=== PATIENT | female | born 2000 | race Caucasian/White ===

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

== ENCOUNTER 2025-05-09 09:01 | Observation (INO) | payer BC ==
[~2025-05-09] VITALS: Ht 165.1 cm; Wt 98.7 kg
[2025-05-09] VITALS (8 sets, daily range): BP systolic 119–139; BP diastolic 52–68
[~2025-05-09 09:01] MED LIST changes: +DEXAMETHASONE4 MG PO; +HYDROCODONE-AC118 M1 PO; +ZOFRAN4 MG PO
--- OUTSIDE RECORDS SUMMARY | 2025-05-09 09:07 | XMS ---
PreManage Notification: ROBBY GUERRERO Security Tube Washer Events No recent Security Events currently on file CRITERIA MET - Group Notification CARE PROVIDERS JOHNNY [facility] 05/04/2019-Current PHONE: Unknown JEYSON SAMAYOA Physician Current PHONE: [phone] Jono has no Care Guidelines for this patient. Maylin VISIT COUNT (12 MO.) 1 THAD Alva TOTAL 1 NOTE: Visits indicate total known visits. ED/UCC VISIT TRACKING (12 MO.) 05/09/2025 09:01 [facility] [place] TYPE: Emergency COMPLAINT: - ABDOMINAL PAIN INPATIENT VISIT TRACKING (12 MO.) No inpatient visits to display in this time frame [id number]
[2025-05-09] MEDS ORDERED: WEGOVY0.5 MG/0.5 SUB-Q ×2 (09:14)
[2025-05-09 09:27] LABS: BASOPHILS 0.2 % (0.1-1.2); EOSINOPHILS 0.6 % (0.7-5.8); HEMATOCRIT 40.3 % (34.1-44.9); HEMOGLOBIN 12.6 g/dL (11.2-15.7); LYMPHOCYTES 8.9 % (19.3-51.7); MCH 24.5 PG (25.6-32.2); MCHC 31.3 g/dL (32.2-35.5); MCV 78.4 fL (79.4-94.8); MONOCYTES 5.1 % (4.7-12.5); NEUTROPHILS 84.3 % (34.0-71.1); PLATELET COUNT 266 K/uL (182-369); RBC 5.14 M/uL (3.93-5.22)
[2025-05-09] MEDS ORDERED: ondansetron HCL 4 MG/2 ML VIAL IV ONE ×2 (09:30→09:45)
[2025-05-09 09:44] LABS: ALBUMIN/GLOBULIN RATIO 0.63 (1.1-2.4); ANION GAP 20.6 (7-21); BILIRUBIN, TOTAL 0.8 mg/dL (0.2-1.0); BUN/CREATININE RATIO 7.52 (6.0-28.6); CREATININE, SERUM 0.93 mg/dL (0.55-1.02); POTASSIUM 3.6 mmol/L (3.5-5.1); PROTEIN, TOTAL 7.8 g/dL (6.4-8.2)
[2025-05-09] MEDS ORDERED: SODIUM CHLORIDE 0.9% 1,000 ML IV PRN (09:45)
[2025-05-09] MEDS ORDERED: HYDROmorphone HCL 1 MG/ML SYR IV PRN (09:45)
[2025-05-09] MEDS ORDERED: CEFTRIAXONE SODIUM 2 GM in SODIUM CHLORIDE 0.9% 100 ML IV ONE (09:45)
[2025-05-09 09:49] LABS: LACTIC ACID, BLOOD 0.7 mmol/L (0.4-2.0)
[2025-05-09 09:50] LABS: BILIRUBIN, URINE POSITIVE (negative); BLOOD/HGB, URINE SMALL (Negative); KETONE, URINE >=80 (Negative); LEUK ESTERASE, URINE TRACE (negative); NITRITE, URINE POSITIVE (negative)
[2025-05-09 09:54] LABS: EPITHELIAL CELLS, URINE SQUAMOUS 3+ /lpf (0-1+)
[2025-05-09 09:56] LABS: BACTERIA, URINE 2+ /hpf (negative); CASTS, URINE NONE SEEN \\lpf; COLLECTION TYPE, URINE CLEAN CATCH; CRYSTALS, URINE NONE SEEN (0-1+); REFLEX CULTURE, URINE No (No)
[2025-05-09] MEDS ORDERED: ACETAMINOPHEN 1,000 MG/100 ML VIAL IV ONE (11:15)
[2025-05-09] MEDS ORDERED: AMP/SULBACTAM SOD 3 GM in SODIUM CHLORIDE 0.9% 100 ML IV ONE (11:30)
[2025-05-09] MEDS ORDERED: ACETAMINOPHEN 500 MG TAB PO ONE (11:30)
[2025-05-09] MEDS ORDERED: SENNOSIDES/DOCUSATE 1 EA TAB PO SCH (12:23)
[2025-05-09] MEDS ORDERED: ondansetron HCL 4 MG/2 ML VIAL IV PRN (12:30)
[2025-05-09] MEDS ORDERED: KETOROLAC TROMETHAMINE 15 MG/ML VIAL IV PRN (12:30)
[2025-05-09] MEDS ORDERED: SIMETHICONE 80 MG CHEW PO PRN (12:30)
[2025-05-09] MEDS ORDERED: FAMOTIDINE 20 MG TAB PO PRN (12:30)
[2025-05-09] MEDS ORDERED: bisacodyL 10 MG SUPP PR PRN (12:30)
[2025-05-09] MEDS ORDERED: FAMOTIDINE 20 MG/ 2 ML VIAL IV PRN (12:30)
[2025-05-09] MEDS ORDERED: LACTATED RINGER'S 1,000 ML IV SCH (12:30)
[2025-05-09] MEDS ORDERED: MAGNESIUM HYDROXIDE/AL HYDROX 30 ML CUP PO PRN (12:30)
[2025-05-09 12:57] LABS: N. GONORRRHOEAE BY PCR NOT DETECTED (NOT DETECT)
[2025-05-09] MEDS ORDERED: SIMETHICONE 80 MG CHEW PO SCH (13:00)
--- NOTE | 2025-05-09 13:20 | NUR ---
PT ARRIVES TO MEDICAL FLOOR, ABLE TO INDEPENDENTLY TRANSFER TO BED. PT UP TO VOID INDEPENDENTLY. PT REQUESTS PRN PAIN MEDICATION, GIVEN. PT FAMILY AT THE BEDSIDE. PT TOLERATES PO MEDICATIONS AND FOOD/DRINK W/O DIFFICULTY. PT ABLE TO ANSWER ADMISSION QUESTIONS INDEPENDENTLY. PT GIVEN FAN FOR HEAT IN ROOM. PT STATES NO FURTHER NEEDS AT THIS TIME. CALL LIGHT WITHIN REACH.
[2025-05-09] MEDS ORDERED: AMP/SULBACTAM SOD 3 GM in SODIUM CHLORIDE 0.9% 100 ML IV SCH (14:00)
--- NOTE | 2025-05-09 15:15 | NUR ---
PT ADMITTED TO MED SURG FLOOR, COMPLETED VITALS PT REPORTED PAIN LEVEL AT A 6 - INFORMED PT'S NURSE OF PAIN RATING GOT PT FRESH ICE WATER, CALL LIGHT WITHIN REACH PT REPORTED NOT NEEDING ANYTHING ELSE AT THIS TIME
--- NOTE | 2025-05-09 15:32 | NUR ---
MED REC COMPLETE
--- NOTE | 2025-05-09 15:51 | NUR ---
PT C/O /10 CRAMPING ABD PAIN, PRN PAIN MEDICATION GIVEN PER PT REQUEST. PT MENU GIVEN, PT STATES NO FURTHER NEEDS AT THIS TIME, MOTHER AT THE BEDSIDE. CALL LIGHT WITHIN REACH.
--- NOTE | 2025-05-09 18:47 | NUR ---
PT RATED PAIN A "5", PT HAS TWO PARENTS IN ROOM, PT AWAKE AND ALERT, HAS ICE WATER AND STATED SHE DID NOT NEED ANYTHING ELSE AT THIS TIME. CALL LIGHT WITHIN REACH.
--- NOTE | 2025-05-09 19:46 | NUR ---
REPORT RECEIVED FROM DAY SHIFT RN. PT LYING IN BED ALERT AND ORIENTED. REPORTS NAUSEA AND LOWER ABD PAIN 08/04. PRN FOR PAIN AND N/V ADMIN PER EMAR. NO FURTHER NEEDS. WHITE BOARD UPDATED. CALL LIGHT IN REACH.
--- NOTE | 2025-05-09 20:34 | NUR ---
EVENING ASSESSMENT COMPLETE. SCHEDULED MEDS ADMIN PER EMAR. PT REPORTS LOWER ABD PAIN /. PRN FOR PAIN ADMIN PER EMAR. BOWEL TONES ACTIVE. ABD SOFT. PT DENIES NAUSEA. VS AND I&O OBTAINED. MOM TO STAY THE NIGHT, LINENS PROVIDED. PT DENIES QUESTIONS OR CONCERNS. CALL LIGHT IN REACH.
--- NOTE | 2025-05-09 22:02 | NUR ---
PT'S MOM TO RN STATION. REQUESTS WARM BLANKET, AND STATES THAT PT IS PAINFUL. PT RATING PAIN 9/10 TO LOWER ABD. PRN ADMINISTERED, SEE EMAR. PT'S MOM STATES THAT PT IS FEELING COLD, AND THAT PT'S NECK FEELS WARM. TEMPERATURE OBTAINED, 99.0. SOCKS PROVIDED PER PT'S REQUEST, PT'S MOM ASSISTED HER TO PUT THEM ON. PT AND MOM DENY FURTHER NEEDS AT THIS TIME. CALL LIGHT IN REACH.
--- NOTE | 2025-05-09 23:37 | NUR ---
IV PUMP ALARMING. ISSUE RESOLVED PT UP TO BR TO VOID 200 ML CONCENTRATED URINE. PT REPORTS INTERMITTENT SHARP/STABBING PAIN WITH URINATION. BACK TO BED. PRN FOR PAIN ADMIN PER EMAR. PT REPORTS CONCERNS OF URINARY RETENTION. BLADDER SCANNED FOR 5ML. WARM COMPRESS PROVIDED FOR LOWER ABD PAIN. MOM AT BEDSIDE. NO FURTHER NEEDS.
[2025-05-10] VITALS (8 sets, daily range): BP systolic 114–131; BP diastolic 53–63
--- NOTE | 2025-05-10 02:05 | NUR ---
PT RESTING WITH EYES CLOSED. AWAKENS EASILY. VS AND I&O OBTAINED. TEMP AND HR ELEVATED. MD NOTIFIED. NEW TELEPHONE ORDERS RECEIVED VERIFIED WITH READBACK METHOD.
[2025-05-10] MEDS ORDERED: ACETAMINOPHEN 500 MG TAB PO PRN (02:15)
--- NOTE | 2025-05-10 02:50 | NUR ---
IN FOR TYLENOL ADMIN. PT UP TO BR WITH MINIMAL SBA TO VOID. PT REPORTS INCREASED PAIN WITH URINATION. BACK TO BED. PRN FOR PAIN ADMIN. WARM COMPRESS PROVIDED. NO FURTHER NEEDS. MOM AT BEDSIDE. CALL LIGHT IN REACH.
[2025-05-10 05:21] LABS: BASOPHILS 0.2 % (0.1-1.2); EOSINOPHILS 2.2 % (0.7-5.8); HEMATOCRIT 29.8 % (34.1-44.9); HEMOGLOBIN 9.2 g/dL (11.2-15.7); MCH 24.5 PG (25.6-32.2); MCHC 30.9 g/dL (32.2-35.5); MCV 79.3 fL (79.4-94.8); NEUTROPHILS 76.7 % (34.0-71.1); PLATELET COUNT 176 K/uL (182-369); RBC 3.76 M/uL (3.93-5.22)
--- NOTE | 2025-05-10 06:13 | NUR ---
PT RESTING WITH EYES CLOSED. AWAKENS EASILY. VS AND I&O OBTAINED. PT REPORTS LOWER ABD PAIN /. PRN FOR PAIN ADMIN PER EMAR. NEW BAG IVF INFUSING WNL. NO C/O NAUSEA AT THIS TIME. DENIES FURTHER NEEDS. CALL LIGHT IN REACH.
--- NOTE | 2025-05-10 07:32 | HP ---
[facility] [address] [place], [place] [address] Signed ADMISSION DATE: 05/09/2025 CHIEF COMPLAINT: Pelvic cramping. HISTORY OF PRESENT ILLNESS: The patient is a 24-year-old G1, who is approximately nine days status post suction D and C at approximately 13 weeks gestation. This was performed at [facility] in [place], [place]. The patient reports that the surgery went well and she went home and had minimal symptoms for approximately six days afterwards. Starting about four days ago, she began to develop some pelvic cramping in the midline. She had some slight spotting with this, but mostly just cramping. That night, she also developed nausea and vomiting and was unable to keep anything down. She did try some luuh-soi-gusdmrc analgesics, but they were only minimally helpful. Her nausea and vomiting and pelvic pain and cramping got worse and after four days of this, the symptoms became too much for her to handle, so she decided to present to the emergency room. In the ED, she was evaluated by the ED physician and found to be slightly tachycardic. On physical exam, she was found to have moderate lower abdominal tenderness. On pelvic exam, she was found to be quite tender as well. Pelvic ultrasound was performed showing probable bilateral hydrosalpinx, possibly pyosalpinx. Labs, she was found to have a white blood cell count of 20.8 in the ED. 84% neutrophils. Her urine also showed nitrites and white blood cells. REVIEW OF SYMPTOMS: The patient admits to some subjective fevers. Also dysuria, but denies frequency or urgency. Otherwise, 8-point review of systems negative. PAST MEDICAL HISTORY: Denies. PAST SURGICAL HISTORY: 1. The patient had a tonsillectomy in approximately 2018. 2. She also had a left toe pinning as a child. 3. She had a suction D and C in April of 2025. GREY TENDER HISTORY: The patient reports monthly menses lasting seven days. Denies control, denies Electronically Signed By: KOBI GUSTAFSON MD 05/10/25 0732 PATIENT NAME: ROBBY GUERRERO HISTORY AND PHYSICAL DATE OF : 4 REPORT #: [id number] PHYSICIAN: KOBI GUSTAFSON MD PCP: ANAIS CHACKO MD REPORT IS CONFIDENTIAL AND NOT TO BE RELEASED WITHOUT AUTHORIZATION [facility] [address] [place] [id number] Signed sexually transmitted infection, denies history of abnormal Pap. OB HISTORY: The patient is a G1 with a most recent elective AB nine days ago. MEDICATIONS: The patient had begun semaglutide injections, but has only received one dose approximately one week ago. ALLERGIES: NKDA. SOCIAL HISTORY: The patient occasionally smokes cigarettes. She occasionally drinks alcohol, but denies any problems with alcohol in the past. She denies drug use. FAMILY HISTORY: Type 1 diabetes mellitus, hypertension. PHYSICAL EXAMINATION: VITAL SIGNS: Temperature is 38.3. Pulse ranges from 113-129. Respiratory rate ranges 21-30. Blood pressure range 114 to 150/68 to 90. The patient is saturating 96% on room air. GENERAL: The patient appears mildly ill, but is alert and oriented x3. HEENT: Mucous membranes are slightly dry. Sclerae anicteric. NECK: Supple. No thyromegaly. LUNGS: Clear to auscultation bilaterally. BACK: No CVA tenderness. HEART: Regular rate and rhythm, although slightly tachy. No murmurs. ABDOMEN: Normoactive bowel sounds. Abdomen is soft. Moderately tender in the lower abdomen. No rebound. No mass appreciated, no hepatosplenomegaly. PELVIC: Deferred as it will not international exchange coordinator. EXTREMITIES: Trace bilateral lower extremity edema. Lower extremities are nontender bilaterally. LABORATORY DATA: White blood cell count of 20.8, hemoglobin of 12.6, platelets of 266. Urine shows nitrite positive, WBC positive. Creatinine is 0.93, lactate is 0.7. IMAGING: Electronically Signed By: KOBI GUSTAFSON MD 05/10/25 0732 PATIENT NAME: ROBBY GUERRERO HISTORY AND PHYSICAL DATE OF : [birth year] REPORT #: [id number] PHYSICIAN: KOBI GUSTAFSON MD PCP: ANAIS CHACKO MD REPORT IS CONFIDENTIAL AND NOT TO BE RELEASED WITHOUT AUTHORIZATION [address] [address] Signed Pelvic ultrasound, normal endometrium and myometrium. Endometrial thickness of 13 mm. Mildly dilated fallopian tubes bilaterally. Right ovary 34 x 20 x 37 mm. Left ovary 43 x 24 x 38 mm. Small amount of free fluid, no adnexal mass. ASSESSMENT: Postsurgical endomyometritis, status post 13 week elective termination via suction D and C. The patient is slightly tachycardic and needs fluid resuscitation. Additionally, she is unable to keep p.o. down and as such, needs parenteral antibiotics. PLAN: We will admit for OBS. We will begin intravenous Unasyn as standard protocol for endomyometritis. We will give antiemetics and analgesics on a p.r.n. basis. Kobi Gustafson MD BB/MODL /[id number] Copies: ~ Electronically Signed By: KOBI GUSTAFSON MD 05/10/25 0732 PATIENT NAME: ROBBY GUERRERO HISTORY AND PHYSICAL DATE OF : [birth year] REPORT #: [id number] PHYSICIAN: KOBI GUSTAFSON MD PCP: ANAIS CHACKO MD REPORT IS CONFIDENTIAL AND NOT TO BE RELEASED WITHOUT AUTHORIZATION
--- NOTE | 2025-05-10 07:41 | NUR ---
DOCTOR IN TO SEE PATIENT. PATIENT MAY BE SALINE LOCKED TODAY.
[2025-05-10] MEDS ORDERED: HYDROCODONE/ACETA 5/325 TAB PO PRN (08:00)
[2025-05-10] MEDS ORDERED: IBUPROFEN 600 MG TAB PO SCH (08:00)
--- NOTE | 2025-05-10 08:25 | NUR ---
REMOVED IVF ORDERED. AB RUNNING. MOM IN ROOM. PT AMB TO RESTROOM ON OWN. STATES IT TAKES A BIT TO INITIATE STREAM. FEELS SLIGHTLY BLOATED. RATES PAIN 6\10.
--- NOTE | 2025-05-10 09:53 | NUR ---
UR CLINICAL REVIEW: [facility] [place] MEETS OBS FOR PID WITH NEED FOR IV ABX/PAIN MANAGEMENT [facility] PPO OBS 05/09/25 @0902 ORDER MATCHES [facility] FAXED TO [facility] FOR REVIEW PER REQUEST DISCHARGE TO HOME WHEN STABLE. ANTICIPATE DC 05/11/25
--- NOTE | 2025-05-10 09:59 | NUR ---
PT CALLED FOR PAIN MEDS, RATES 7.
--- NOTE | 2025-05-10 10:49 | NUR ---
PERSONAL HEALTH INFORMATION REVIEWED. PATIENT LIVES IN A DUPLEX WITH SISTER IN LAW AND NIECE. PATIENT DOES NOT HAVE ANY STEPS. DOES NOT USE DME. DRIVES AT BASELINE. MOTHER TO PICK HER UP WHEN MEDICALLY CLEARED. IS NOT HAPPY WITH HER PCP BUT LIKE [facility]. CALLED THE CLINIC TO SEE IF SHE COULD GET SET UP WITH SOMEONE ELSE. CLINIC TO CALL PATIENT BACK ABOUT SCHEDULING AND FOLLOW UP APPOINTMENT. NO FUTHER CM NEEDS AT THIS TIME.
--- NOTE | 2025-05-10 11:03 | NUR ---
PT WAS SLEEPING. SPOKE TO PT'S MOTHER WHO IS IN ROOM. LIGHTS TURNED DOWN IN ROOM, CALL LIGHT WITHIN REACH OF PT.
--- NOTE | 2025-05-10 11:44 | NUR ---
PATIENT RESTING IN BED. MOTHER IN ROOM STATES PATIENT REPORTED IMPROVEMENT IN PAIN STATUS AFTER MEDICATION. GAYATRI CASTAÑEDA, SN
--- NOTE | 2025-05-10 12:22 | NUR ---
PT WOKE UP FROM SLEEPING, THIS RETENTION REPRESENTATIVE HELPED HER WITH HER LUNCH TRAY, GOT HER FRESH ICE WATER AND A STRAW SHE REQUESTED. CALL LIGHT WITHIN REACH, PT REPORTED NOT NEEDING ANYTHING ELSE AT THIS TIME.
--- NOTE | 2025-05-10 13:51 | NUR ---
ADMINISTERED SCHEDULED MEDS. MOTHER IN ROOM. PT RATES PAIN 5\10. STATES NORCO WORKED MUCH BETTER THAN THE DILAUDID. GETTING SOME REST.
--- NOTE | 2025-05-10 14:41 | NUR ---
PT WAS LAYING IN BED, STARTED COUGHING AND THEN BECAME NAUSEOUS. PT WAS DRY HEAVING SEVERAL TIMES, CALLED FOR THE RN, THE CHARGE NURSE CAME IN AND GAVE ZOFRAN. ANTIBIOTIC WAS COMPLETED, SO THE PT'S NURSE CAME IN AND TOOK THE IV OUT, BECAUSE SHE SAID SHE NEEDED A NEW IV. THE PT'S ROOM WAS HOT, THIS TOOL RADIAL DRILL PRESS SET UP OPERATOR TURNED DOWN THE HEAT IN THE ROOM. PT HAS FRESH ICE WATER, AND TOWELS AND ROBE IN BATHROOM IF PT FEELS LIKE A SHOWER. MOTHER IN PT'S ROOM. CALL LIGHT WITHIN REACH OF PT.
--- NOTE | 2025-05-10 14:48 | NUR ---
REMOVED IV IT WASN'T WORKING. PT READY TO SHOWER.
--- NOTE | 2025-05-10 16:14 | NUR ---
ADMINISTERED PRN PAIN MED PT WAS READY A BIT AGO AND COULD NOT HAVE IT UNTIL 1600. PT HAD BEEN GIVEN HOT PACKS FOR CRAMPING. STATES HER ABD FEELS SLIGHTLY MORE DISTENDED. PT FATHER IN ROOM.
--- NOTE | 2025-05-10 16:20 | NUR ---
PT REQUESTED HOT PACKS FOR HER STOMACH AND BACK, THIS SAFETY ASSISTANT GOT BOTH. WE WRAPPED THE ONE ON HER BACK IN A TOWEL SO IT WAS NOT SO HOT. PT REPORTED THE HOT PACK HELPED HER PAIN LEVEL. CALL LIGHT WITHIN REACH, FATHER IN ROOM.
--- NOTE | 2025-05-10 17:06 | NUR ---
PT REQUESTED A ALEX LEMON/EASTERN SHOSHONE SODA, I WOKE HER UP HOPING SHE COULD EAT A LITTLE, TO HELP WITH NAUSEA. PT'S FATHER IS IN THE ROOM. CALL LIGHT WITHIN REACH OF PT. DINNER WAS JUST SERVED.
--- NOTE | 2025-05-10 17:39 | NUR ---
CALLED DR LAWRENCE FOR ONGOING NAUSEA. ONE TIME ADDITIONAL DOSE ZOFRAN ORDERED.
[2025-05-10] MEDS ORDERED: ondansetron HCL 4 MG/2 ML VIAL IV ONE (17:45)
--- NOTE | 2025-05-10 18:12 | NUR ---
PT IN BED AWAKE AND ALERT. PT REQUESTED ICE FOR WATER AND HEAT PACK FOR CHITO HANLEY GOT ALL THOSE AND COFFEE FOR THE PT'S MOTHER. PT HAD TWO VISITORS, ONE IS HER MOTHER. CALL LIGHT WITHIN REACH, PT REPORTED NEEDING NOTHING ELSE AT THIS TIME.
--- NOTE | 2025-05-10 18:27 | NUR ---
PATIENT IS RESTING IN BED ON HER BACK. SHE CONTINUES TO USE WARM COMPRESS ON LOWER ABDOMEN AND LOWER BACK. SHE REPORTS HER NAUSEA IS IMPROVED AFTER ZOFRAN WAS ADMINISTERED BY CRISTIN DA SILVA. PATIENT'S MOTHER REMAINS IN THE ROOM. PATIENT DENIES ANY NEEDS OR CONCERNS AT THIS TIME.
--- NOTE | 2025-05-10 19:23 | NUR ---
REPORT RECEIVED FROM DAY SHIFT RN. PT LYING IN BED RESTING WITH EYES CLOSED. RESPIRATIONS EVEN. WHITE BOARD UPDATED. CALL LIGHT IN REACH.
--- NOTE | 2025-05-10 20:46 | NUR ---
EVENING ASSESSMENT COMPLETE. SCHEDULED MEDS ADMIN PER EMAR. PT REPORTS LOWER ABD PAIN 6/10 WITH ACTIVITY, NO PAIN AT REST. SCHEDULED PAIN MEDS GIVEN WITH BITES OF PUDDING. NO C/O NAUSEA AT THIS TIME. UP TO BR TO VOID 400 ML YELLOW URINE. PT REPORTS CRAMPING WITH URINATION AND DIFFICULTY "STARTING." PT DENIES VAGINAL BLEEDING. BACK TO BED. VS AND I&O OBTAINED, WNL. NO FURTHER NEEDS AT THIS TIME. CALL LIGHT IN REACH.
--- NOTE | 2025-05-10 21:41 | NUR ---
PT UP TO AMB ONE LAP AROUND NURSING UNIT WITH MOM. REPORTS INCREASED PAIN WITH AMBULATION BUT TOLERABLE. PT IN BED AT THIS TIME. REQUESTING PRN FOR PAIN WHEN AVAILABLE. NO OTHER NEEDS AT THIS TIME.
--- NOTE | 2025-05-10 22:09 | NUR ---
PT LYING IN BED WATCHING TV WITH MOM AT BEDSIDE. REPORTS LOWER ABD PAIN 7/10. PRN FOR PAIN ADMIN PER EMAR. WARM COMPRESS AND WARM BLANKET PROVIDED. NO FURTHER NEEDS.
--- NOTE | 2025-05-10 23:26 | NUR ---
PT AWAKE IN BED WATCHING TV WITH MOM AT BEDSIDE. DENIES NEEDS. REPORTS PAIN IMPROVED. DENIES NEEDS. CALL LIGHT IN REACH.
--- NOTE | 2025-05-11 02:15 | NUR ---
PT RESTING WITH EYES CLOSED. AWAKENS EASILY. UP TO BR TO VOID. BACK TO BED, DANIELLE WELL. REPORTS LESS DISCOMFORT WITH URINATION. RATES LOWER ABD PAIN 4/10. SCHEDULED PAIN MEDS GIVEN. TEMP 97.3. PT WOKE DIAPHORETIC. NEW LINENS AND GOWN PROVIDED. IV ABX INFUSING WNL. NO FURTHER NEEDS. MOM RESTING IN RECLINER. CALL LIGHT IN REACH.
[2025-05-11 03:56] VITALS: BP 109/57
[2025-05-11 03:58] VITALS: BP 109/57
--- NOTE | 2025-05-11 04:09 | NUR ---
PT UP TO BR TO VOID 300 ML YELLOW URINE. BACK TO BED. WARM BLANKET PROVIDED. VS AND I&O OBTAINED. PRN FOR PAIN ADMIN FOR LOWER ABD PAIN. NO FURTHER NEEDS AT THIS TIME. CALL LIGHT IN REACH.
--- NOTE | 2025-05-11 06:47 | NUR ---
PT RESTING IN BED WITH EYES CLOSED. RESPIRATIONS EVEN. CALL LIGHT IN REACH.
--- NOTE | 2025-05-11 07:35 | NUR ---
PT RESTING EYES CLOSED AT TIME OF SHIFFT REPORT, MOTHER ALSO, LEFT UNDISTURBED. PT AWAKE NOW, IS PRESENT DISCUSSING DC. F/U INSTRUCTIONS PROVIDED ALL QUESTIONS ANSWERED
--- NOTE | 2025-05-11 08:06 | NUR ---
PT UP TO TOILET INDEPENDENTLY RETURNS TO BED FOR BREAKFAST. VISITORS ARE PRESENT. PT ANTICIPATES DC AFTER MORNING MEAL AND ABX
--- NOTE | 2025-05-11 08:16 | NUR ---
PATIENT IS SITTING UP FOR BREAKFAST. MOM IN ROOM. WHITEBOARD WAS UPDATED WITH TODAY'S DATE, RN AND SOLAR ENERGY SPECIALIST NAME. NO CARES WERE REQUESTED. CALL LIGHT AND PERSONAL ITEMS ARE WITHIN REACH.
[2025-05-11 08:46] VITALS: BP 138/70
--- NOTE | 2025-05-11 08:50 | NUR ---
Spoke with Bel. She is dressed and getting ready for dc. She denies any needs and plans on leaving shortly. Family will pick her up.
[2025-05-11] MEDS ORDERED: METRONIDAZOLE500 MG PO ×2 (09:17)
[2025-05-11] MEDS ORDERED: DOXYCYCLINE HY100 MG PO ×2 (09:17)
[2025-05-11 09:50] VITALS: BP 138/70
--- NOTE | 2025-05-11 09:53 | NUR ---
PT AND MOM GATHERED ALL ITEMS MOM MADE SEVERAL TRIPS TO THE CAR TAKING ITEMS OUT. ROOM SCANNED NOTHING LEFT BEHIND
== END 2025-05-11 09:32 | disposition home or self-care (01) ==
LOC: ED 09:01 → MS 09:02
PROVIDERS: Emergency Medicine; ADMIT Obstetrics & Gynecology; ATTEND Obstetrics & Gynecology
DX: O03.5 Genital tract and pelvic infection following complete or unspecified spontaneous abortion (principal)
CPT/HCPCS: 36415; 51798; 71045; 76815; 76817; 80053; 81001; 83605; 84703; 85025; 85060; 87040; 96361; 96365; 96366; 96375; 96376; 99285-25; A9270; G0378; J0295; J0696; J1171; J1885; J2405; J7030; J7121

== ENCOUNTER 2025-05-12 16:25 | Emergency (ER) | payer BC ==
[~2025-05-12] VITALS: Ht 165.1 cm; Wt 99.4 kg
[~2025-05-12 16:25] MED LIST changes: +DOXYCYCLINE HY100 MG PO; +METRONIDAZOLE500 MG PO; +WEGOVY0.5 MG/0.5 SUB-Q
--- OUTSIDE RECORDS SUMMARY | 2025-05-12 16:32 | XMS ---
PreManage Notification: ROBBY GUERRERO Security Muck Operator Events No recent Security Events currently on file CRITERIA MET - Group Notification - [facility] - 2 Visits in 30 Days CARE PROVIDERS JOHNNY [facility] 05/04/2019-Current PHONE: Unknown JEYSON SAMAYOA Physician Current PHONE: [phone] Jono has no Care Guidelines for this patient. Maylin VISIT COUNT (12 MO.) 2 [facility] TOTAL 2 NOTE: Visits indicate total known visits. ED/UCC VISIT TRACKING (12 MO.) 05/12/2025 16:25 [facility] TYPE: Emergency COMPLAINT: - LOWER ABD PAIN 05/09/2025 09:01 [facility] [place] TYPE: Emergency COMPLAINT: - ABDOMINAL PAIN INPATIENT VISIT TRACKING (12 MO.) 05/09/2025 09:02 [facility] [place] TYPE: Observation COMPLAINT: - ENDOMYOMETRITIS [email or web address]
[2025-05-12] MEDS ORDERED: ondansetron HCL 4 MG/2 ML VIAL IV ONE ×2 (17:15→18:45)
[2025-05-12 17:35] LABS: BASOPHILS 0.5 % (0.1-1.2); EOSINOPHILS 3.1 % (0.7-5.8); HEMATOCRIT 32.9 % (34.1-44.9); HEMOGLOBIN 10.2 g/dL (11.2-15.7); LYMPHOCYTES 13.4 % (19.3-51.7); MCH 24.4 PG (25.6-32.2); MCV 78.7 fL (79.4-94.8); NEUTROPHILS 73.4 % (34.0-71.1); PLATELET COUNT 302 K/uL (182-369); RBC 4.18 M/uL (3.93-5.22)
[2025-05-12 17:51] LABS: ALBUMIN 2.3 g/dL (3.4-5.0); ALBUMIN/GLOBULIN RATIO 0.55 (1.1-2.4); ANION GAP 18.4 (7-21); BILIRUBIN, TOTAL 0.4 mg/dL (0.2-1.0); BUN/CREATININE RATIO 6.17 (6.0-28.6); CALCIUM 8.5 mg/dL (8.5-10.1); CREATININE, SERUM 0.81 mg/dL (0.55-1.02); POTASSIUM 3.4 mmol/L (3.5-5.1); PROTEIN, TOTAL 6.5 g/dL (6.4-8.2)
[2025-05-12] MEDS ORDERED: HYDROmorphone HCL 1 MG/ML SYR IV ONE (18:45)
[2025-05-12] MEDS ORDERED: KETOROLAC TROMETHAMINE 30 MG/ML VIAL IV ONE (19:30)
[2025-05-12] MEDS ORDERED: LACTATED RINGER'S 1,000 ML IV ONE (19:30)
[2025-05-12 19:35] LABS: BILIRUBIN, URINE POSITIVE (negative); BLOOD/HGB, URINE SMALL (Negative); KETONE, URINE >=80 (Negative); LEUK ESTERASE, URINE TRACE (negative); NITRITE, URINE NEGATIVE (negative); PH, URINE 6.5 (5-7)
[2025-05-12 19:41] LABS: BACTERIA, URINE NONE SEEN /hpf (negative); CASTS, URINE NONE SEEN \\lpf; COLLECTION TYPE, URINE CLEAN CATCH; CRYSTALS, URINE NONE SEEN (0-1+); EPITHELIAL CELLS, URINE SQUAMOUS 3+ /lpf (0-1+); REFLEX CULTURE, URINE No (No)
[2025-05-12] MEDS ORDERED: AMP/SULBACTAM SOD 3 GM in SODIUM CHLORIDE 0.9% 100 ML IV ONE (21:00)
[2025-05-12 22:55] VITALS: BP 118/65
== END 2025-05-12 23:08 | disposition short-term general hospital (02) ==
LOC: ED 16:25
PROVIDERS: Emergency Medicine
DX: N70.93 Salpingitis and oophoritis, unspecified (principal); Z79.899 Other long term (current) drug therapy
CPT/HCPCS: 36415; 74177; 80053; 81001; 83690; 84702; 85025; 96375; 96376; 99285-25; J0295; J1171; J1885; J2405; J7121; Q9967

== ENCOUNTER 2025-05-16 14:31 | Inpatient (IN) | payer BC ==
[~2025-05-16] VITALS: Ht 165.1 cm; Wt 215.4 kg
--- OUTSIDE RECORDS SUMMARY | 2025-05-16 14:38 | XMS ---
PreManage Notification: ROBBY GUERRERO Security Nuclear Plant Technical Advisor Events No recent Security Events currently on file CRITERIA MET - Group Notification - [facility] - 2 Visits in 30 Days CARE PROVIDERS JOHNNY [facility] 05/04/2019-Current PHONE: Unknown JEYSON SAMAYOA Physician Current PHONE: [phone] Jono has no Care Guidelines for this patient. Maylin VISIT COUNT (12 MO.) [address] [place] [address] TOTAL 3 NOTE: Visits indicate total known visits. ED/UCC VISIT TRACKING (12 MO.) 05/16/2025 14:32 [facility] [place] TYPE: Emergency COMPLAINT: - WOUND CHECK 05/12/2025 16:25 [facility] TYPE: Emergency COMPLAINT: - LOWER ABD PAIN 05/09/2025 09:01 [facility] [place] TYPE: Emergency COMPLAINT: - ABDOMINAL PAIN INPATIENT VISIT TRACKING (12 MO.) 05/13/2025 00:56 [facility] Heena Cui TYPE: Surgery DIAGNOSES: - Tubal Ovarian Abscess 05/09/2025 09:02 [facility] [place] TYPE: Observation COMPLAINT: - ENDOMYOMETRITIS DIAGNOSES: - Genital tract and pelvic infection following complete or unspecified spontaneous - Unspecified abdominal pain [email or web address]
[2025-05-16] MEDS ORDERED: KETOROLAC TROME10 MG PO (14:53)
[2025-05-16] MEDS ORDERED: OXYCODONE HCL5 MG PO (14:53)
[2025-05-16] MEDS ORDERED: PHENERGAN25 MG/1 ML INJ (14:54)
[2025-05-16] MEDS ORDERED: ONDANSETRON ODT8 MG PO (14:54)
[2025-05-16 15:41] LABS: HEMATOCRIT 34.4 % (34.1-44.9); HEMOGLOBIN 10.6 g/dL (11.2-15.7); MCH 24.3 PG (25.6-32.2); MCHC 30.8 g/dL (32.2-35.5); MCV 78.7 fL (79.4-94.8); PLATELET COUNT 339 K/uL (182-369); RBC 4.37 M/uL (3.93-5.22)
[2025-05-16 15:57] LABS: BANDS, MANUAL DIFF 3; EOSINOPHILS, MANUAL DIFF 1; LYMPHOCYTES, MANUAL DIFF 20; MONOCYTES, MANUAL DIFF 5; NEUTROPHILS, MANUAL DIFF 71
[2025-05-16 16:07] LABS: ALBUMIN 2.4 g/dL (3.4-5.0); ALBUMIN/GLOBULIN RATIO 0.6 (1.1-2.4); ANION GAP 13.8 (7-21); BILIRUBIN, TOTAL 0.2 mg/dL (0.2-1.0); BUN/CREATININE RATIO 4.81 (6.0-28.6); CALCIUM 8.5 mg/dL (8.5-10.1); CREATININE, SERUM 0.83 mg/dL (0.55-1.02); POTASSIUM 3.8 mmol/L (3.5-5.1); PROTEIN, TOTAL 6.4 g/dL (6.4-8.2)
[2025-05-16] MEDS ORDERED: ONDANSETRON 4 MG TAB ODT SL ONE (16:45)
[2025-05-16] MEDS ORDERED: HEParin SOD (PORCINE) 5,000 UNIT/ML SYR IV ONE (17:15)
[2025-05-16] MEDS ORDERED: HEPARIN SOD,PORK IN 0.45% NACL 500 ML IV SCH (17:15)
[2025-05-16] MEDS ORDERED: HEParin SOD (PORCINE) 5,000 UNIT/ML SYR IV PRN ×3 (17:15)
[2025-05-16 17:26] LABS: INR 1.18 (0.80-1.30); PARTIAL THROMBOPLASTIN TIME 38.2 Sec (22.9-41.3); PROTIME 14.5 Sec (11.2-14.2)
[2025-05-16] MEDS ORDERED: ACETAMINOPHEN 325 MG TAB PO PRN (18:15)
[2025-05-16] MEDS ORDERED: ondansetron HCL 4 MG/2 ML VIAL IV PRN (18:15)
[2025-05-16] MEDS ORDERED: PROCHLORPERAZINE EDISYLATE 10 MG/2 ML VIAL IV PRN (18:15)
[2025-05-16] MEDS ORDERED: OXYCODONE HCL 5 MG TAB PO PRN (18:15)
--- NOTE | 2025-05-16 19:20 | NUR ---
PT ADMITTED TO ROOM 124 VIA STRETCHER FROM ED. PT C/O PAIN 08/04 TO LLQ ABDOMINAL DRAIN SITE. ORDERS REC'D. PT MEDICATED WITH 5MG OXYCODONE. PT ORIENTED TO ROOM, ADMISSION HISTORY AND SCREENINGS COMPLETED. PT R AC 20G IV INFUSING HEPARIN @ 26.6 UNITS. BED LOW POSITION AND LOCKED, CALL FOSS IN REACH WELL PERSONAL BELONGINGS. REPORT GIVEN TO PRIMARY RN, BLAKE.
[2025-05-16 19:22] LABS: ABO B; RH POSITIVE
[2025-05-16 19:23] LABS: ANTIBODY SCREEN NEGATIVE
[2025-05-16 19:40] VITALS: BP 132/69
--- NOTE | 2025-05-16 19:40 | NUR ---
RECEIVED REPORT FROM ED NURSE AND SRI ZARAGOZA RN. PT ALERT IN BED, REPORTS PAIN OF ARM AND ABDOMEN. NO OTHER NEEDS PRESENTLY, CALL LIGHT IN REACH
--- NOTE | 2025-05-16 20:03 | NUR ---
VERIFIED HEPARIN GTT WITH DESKTOP ENGINEER, CORRECT DOSING WEIGHT AND DRIP RATE. PT ALERT, REQUESTS HEAT PACK FOR BACK. SUPPORTIVE FAMILY IN ROOM. CALL LIGHT IN REACH
--- NOTE | 2025-05-16 20:22 | NUR ---
IN ROOM TO DELIVER COFFE TO pt'S MOM. pt REPORTS PAIN, 6-06/03. REQUESTS ADDITIONAL PAIN MEDICATION. PRIMARY RN NOTIFIED.
--- NOTE | 2025-05-16 20:36 | NUR ---
ASSESSMENT, GIVEN ADDITIONAL 5MG OF OXY FOR TOTAL 10MG. GIVEN RONY ABX. NO OTHER NEEDS, CALL LGIHT IN REACH
[2025-05-16] MEDS ORDERED: DOXYCYCLINE HYCLATE 100 MG CAP PO SCH (21:00)
[2025-05-16] MEDS ORDERED: MELATONIN 3 MG TAB PO PRN (21:00)
[2025-05-16] MEDS ORDERED: metroNIDAZOLE 250 MG TAB PO SCH (21:00)
--- NOTE | 2025-05-16 22:55 | NUR ---
PT ALERT IN BED. PT REPORTS PAIN BEGINNING TO INCREASE. RESOURCE RN HELPFULLY OFFERS TO PROVIDE TYLENOL AND COFFEE FOR MOM IN ROOM. NO OTHER REQUESTS, CALL LIGHT IN REACH
--- NOTE | 2025-05-16 23:58 | NUR ---
PT RESTING IN BED, EYES CLOSED AND RISE AND FALL OF CHEST OBSERVED. CALL LIGHT IN REACH, SUPPORTIVE MOTHER AT BEDSIDE. PROVIDED COFFEE FOR MOM.
--- NOTE | 2025-05-17 00:28 | NUR ---
GIVEN PRN OXYCODONE. LAB IN ROOM DRAWING PTT. NO SIGNS OF BLEEDING. REASSESSED L ARM, NO CHANGES FROM PREVIOUS. CALL LIGHT IN REACH
[2025-05-17 01:47] VITALS: BP 130/64
--- NOTE | 2025-05-17 03:00 | NUR ---
PT RESTING IN BED WITH EYES CLOSED, RISE AND FALL OF CHEST OBSERVED. SUPPORTIVE MOM IN ROOM, NO NEEDS, CALL LIGHT IN REACH
--- NOTE | 2025-05-17 03:35 | NUR ---
RESPONDED TO BEEPING IV. RESTARTED AFTER REPOSITIONING ARM. GIVEN ICE PACK FOR ABD, PT REPORTS L ARM PAIN INCREASING. ASSISTED TO REPOSITION, AND OFFERED TO BRING OXYCODONE WHEN AVAILABLE. PULSES UNCHANGED, L ARM WARM AND GOOD CAP REFILL. SENSATION INTACT. PROVIDED COFFEE FOR MOM IN ROOM, CALL LGIHT IN REACH
--- NOTE | 2025-05-17 04:27 | NUR ---
RESPONDED TO BEEPING IV. PT SIDE OCCLUDED, RESTARTED AFTER REPOSITIONING ARM. CALL LIGHT IN REACH
--- NOTE | 2025-05-17 04:41 | NUR ---
GIVEN PRN OXYCODONE FOR ABD AND ARM PAIN. MOM NOTES AREA OF REDNESS ON L ARM HAS SPREAD PAST MARKED AREA, THIS RN AGREES. PT ALSO NOTES THAT HER PINKY AND RING FINGER WITH FAINT TINGLING. PULSES UNCHANGED, CAP REFILL <3SECONDS, SENSATION TO TOUCH INTACT. CALL LIGHT IN REACH
[2025-05-17 04:56] VITALS: BP 114/56
--- NOTE | 2025-05-17 05:03 | NUR ---
NOTIFIED MD OF INCREASED REDNESS OF L ARM WELL FAINT NUMBNESS AND TINGLING OF 4TH&5TH FINGERS. NO NEW INSTRUCTIONS FOR NOW, PT VITALS AND PULSE STABLE ON HEPARIN GTT, RECOMMENDS HEAT AND OBSERVATION. ADDITIONALLY OK'S FOR DRAIN CARE ORDER.
[2025-05-17 06:42] LABS: HEMATOCRIT 33.1 % (34.1-44.9); HEMOGLOBIN 9.9 g/dL (11.2-15.7); MCHC 29.9 g/dL (32.2-35.5); MCV 80.1 fL (79.4-94.8); PLATELET COUNT 323 K/uL (182-369); RBC 4.13 M/uL (3.93-5.22)
[2025-05-17 06:57] LABS: ALBUMIN 2.4 g/dL (3.4-5.0); ALBUMIN/GLOBULIN RATIO 0.65 (1.1-2.4); ANION GAP 12.7 (7-21); BILIRUBIN, TOTAL 0.2 mg/dL (0.2-1.0); BUN/CREATININE RATIO 5.95 (6.0-28.6); CALCIUM 8.7 mg/dL (8.5-10.1); CREATININE, SERUM 0.84 mg/dL (0.55-1.02); MAGNESIUM 2.2 mg/dL (1.8-2.4); PHOSPHORUS, INORGANIC 5.1 mg/dL (2.5-4.9); POTASSIUM 3.7 mmol/L (3.5-5.1); PROTEIN, TOTAL 6.1 g/dL (6.4-8.2)
[2025-05-17 07:18] LABS: BANDS, MANUAL DIFF 2; BASOPHILS, MANUAL DIFF 1; EOSINOPHILS, MANUAL DIFF 7; LYMPHOCYTES, MANUAL DIFF 27; MONOCYTES, MANUAL DIFF 6; NEUTROPHILS, MANUAL DIFF 54
--- NOTE | 2025-05-17 07:20 | NUR ---
PT RESTING IN BED WITH MOTHER IN ROOM. NO REQUESTS AT THIS TIME. REPORT RECEIVED AND HEPARIN DRIP VERIFIED WITH BLAKE Zacarias RN - NO CHANGE AT THIS TIME BASED ON LAB RESULTS. CALL LIGHT WITHIN REACH.
--- NOTE | 2025-05-17 08:00 | NUR ---
PT ASSESSMENT COMPLETE. PT DEMONSTRATED 10 CC NS FLUSH TO SHADY AND EMPTIED DRAIN. SHADY DRAINING SEROSANGUANOUR DRAINAGE AT THIS TIME. MOTHER IN ROOM. PT C/O PAIN TO L) AC AND ABD 04/03. STATES WOULD LIKE PAIN MED WITH BREAKFAST. NO OTHER REQUESTS AT THIS TIME. CALL LIGHT WITHIN REACH.
[2025-05-17 09:10] VITALS: BP 112/47
[2025-05-17] MEDS ORDERED: DOCUSATE SODIUM 100 MG CAP PO SCH (09:34)
[2025-05-17] MEDS ORDERED: PROMETHAZINE HC25 M1 PO (09:36)
--- NOTE | 2025-05-17 09:50 | NUR ---
DR MEJIAS IN TO SEE PT AND HER MOTHER AND DISCUSS POC.
--- NOTE | 2025-05-17 09:57 | NUR ---
PT AMBULATED TO RESTROOM, TOLERATED WELL. PAIN MED GIVEN FOR PAIN TO ABD 06/03. MOTHER IN ROOM. NO OTHER REQUESTS AT THIS TIME.
[2025-05-17 10:43] VITALS: BP 112/47
[2025-05-17] MEDS ORDERED: APIXABAN 5 MG TAB PO ONE (11:00)
[2025-05-17] MEDS ORDERED: ELIQUIS5 MG PO (11:12)
--- NOTE | 2025-05-17 11:14 | NUR ---
HEPARIN DRIP DC'D ORDERED.
[2025-05-17] MEDS ORDERED: PHARMACY RENAL DOSE ADJUSTMENT 1 DOSE MISC PO SCH (12:00)
--- NOTE | 2025-05-17 13:31 | NUR ---
PATIENT DISCHARGED HOME PRIOR TO DISCHARGE PLANNING ASSESSMENT BEING COMPLETED. NO DISCHARGE NEEDS IDENTIFIED PER MDR AND NURSING.
== END 2025-05-17 11:55 | disposition home or self-care (01) | DRG 315 ==
LOC: ED 14:31 → MS 18:05
PROVIDERS: Emergency Medicine; ADMIT Family Medicine; ATTEND Family Medicine
DX: T80.1XXA Vascular complications following infusion, transfusion and therapeutic injection, initial encounter (principal); I82.612 Acute embolism and thrombosis of superficial veins of left upper extremity; D50.9 Iron deficiency anemia, unspecified; N70.92 Oophoritis, unspecified; Z79.891 Long term (current) use of opiate analgesic; Z79.85 Long-term (current) use of injectable non-insulin antidiabetic drugs; Z79.899 Other long term (current) drug therapy; Z82.3 Family history of stroke; Z83.3 Family history of diabetes mellitus; Z82.49 Family history of ischemic heart disease and other diseases of the circulatory system; Z90.89 Acquired absence of other organs; Z98.890 Other specified postprocedural states; Y84.8 Other medical procedures as the cause of abnormal reaction of the patient, or of later complication, without mention of misadventure at the time of the procedure
CPT/HCPCS: 36415; 80053; 83605; 83735; 84100; 85025; 85610; 85730; 86850; 86900; 86901; 93971; 96374; 99285-25; A9270; J1644

== ENCOUNTER 2025-06-11 03:48 | Emergency (ER) | payer BC ==
[~2025-06-11] VITALS: Ht 165.1 cm; Wt 89.0 kg
[~2025-06-11 03:48] MED LIST changes: +ELIQUIS5 MG PO; +KETOROLAC TROME10 MG PO; +ONDANSETRON ODT8 MG PO; +OXYCODONE HCL5 MG PO; +PHENERGAN25 MG/1 ML INJ; +PROMETHAZINE HC25 M1 PO
--- OUTSIDE RECORDS SUMMARY | 2025-06-11 03:55 | XMS ---
PreManage Notification: ROBBY GUERRERO Security Proofer Events No recent Security Events currently on file CRITERIA MET - Group Notification - [facility] - 2 Visits in 30 Days CARE PROVIDERS JOHNNY [facility] 05/04/2019-Current PHONE: Unknown JEYSON SAMAYOA Physician Current PHONE: [phone] Jono has no Care Guidelines for this patient. Maylin VISIT COUNT (12 MO.) [address] [place] [address] TOTAL 4 NOTE: Visits indicate total known visits. ED/UCC VISIT TRACKING (12 MO.) 06/11/2025 03:49 [facility] TYPE: Emergency COMPLAINT: - VOMITING 05/16/2025 14:32 [facility] TYPE: Emergency COMPLAINT: - WOUND CHECK 05/12/2025 16:25 [facility] TYPE: Emergency COMPLAINT: - LOWER ABD PAIN DIAGNOSES: - Lower abdominal pain, unspecified - Other senior care (current) drug therapy - Salpingitis and oophoritis, unspecified - Unspecified abdominal pain 05/09/2025 09:01 [facility] TYPE: Emergency COMPLAINT: - ABDOMINAL PAIN INPATIENT VISIT TRACKING (12 MO.) 05/16/2025 18:05 [facility] TYPE: Medical Surgical COMPLAINT: - SUPERFICIAL VENOUS THROMBUS DIAGNOSES: - Acquired absence of other organs - Acquired absence of other organs - Acute embolism and thrombosis of superficial veins of left upper extremity - Acute embolism and thrombosis of superficial veins of left upper extremity - Essential (primary) hypertension - Family history of diabetes mellitus - Family history of diabetes mellitus - Family history of ischemic heart disease and other diseases of the circulatory system - Family history of ischemic heart disease and other diseases of the circulatory system - Family history of stroke - Family history of stroke - Iron deficiency anemia, unspecified - Iron deficiency anemia, unspecified - predatory animal exterminator (current) use of opiate analgesic - predatory animal exterminator (current) use of opiate analgesic - Long-term (current) use of injectable non-insulin antidiabetic drugs - Long-term (current) use of injectable non-insulin antidiabetic drugs - Oophoritis, unspecified - Oophoritis, unspecified - Other termite treater helper (current) drug therapy - Other senior care (current) drug therapy - Other medical procedures as the cause of abnormal reaction of the patient, or of later complication, without mention of misadventure at the time of the procedure - Other medical procedures as the cause of abnormal reaction of the patient, or of later complication, without mention of misadventure at the time of the procedure - Other postprocedural complications of skin and subcutaneous tissue - Other specified postprocedural states - Other specified postprocedural states - Pain in left arm - Vascular complications following infusion, transfusion and therapeutic injection, initial encounter - Vascular complications following infusion, transfusion and therapeutic injection, initial encounter 05/13/2025 00:56 [facility] TYPE: Surgery DIAGNOSES: - Tubal Ovarian Abscess 05/09/2025 09:02 [facility] TYPE: Observation COMPLAINT: - ENDOMYOMETRITIS DIAGNOSES: - Genital tract and pelvic infection following complete or unspecified spontaneous - Unspecified abdominal pain [email or web address]
[2025-06-11] MEDS ORDERED: ENSKYCE1 EACH PO (03:56)
[2025-06-11 04:26] LABS: BASOPHILS 0.2 % (0.1-1.2); EOSINOPHILS 9.1 % (0.7-5.8); LYMPHOCYTES 22.5 % (19.3-51.7); MCH 26.3 PG (25.6-32.2); MCHC 31.6 g/dL (32.2-35.5); MCV 83.1 fL (79.4-94.8); MONOCYTES 7.1 % (4.7-12.5); NEUTROPHILS 60.8 % (34.0-71.1); RBC 5.33 M/uL (3.93-5.22)
[2025-06-11] MEDS ORDERED: KETOROLAC TROMETHAMINE 30 MG/ML VIAL IV ONE (04:30)
[2025-06-11] MEDS ORDERED: LACTATED RINGER'S 1,000 ML IV ONE (04:30)
[2025-06-11 04:38] LABS: ALT (SGPT) 77.0 U/L (14-59); AST (SGOT) 42.0 U/L (15-37); GLOMERULAR FILTRATION RATE,EST 87.0 mL/min (>60); PROTEIN, TOTAL 7.5 g/dL (6.4-8.2); UREA NITROGEN 9.0 mg/dL (7-18)
[2025-06-11] MEDS ORDERED: DIPHENOXYLATE/ATROPINE 1 EA TAB PO ONE ×2 (05:45→06:00)
[2025-06-11] MEDS ORDERED: CARAFATE1 GM PO (05:48)
[2025-06-11] MEDS ORDERED: LOMOTIL TABLET1 EACH PO (05:48)
[2025-06-11] MEDS ORDERED: ONDANSETRON ODT8 MG PO (05:48)
[2025-06-11 06:00] VITALS: BP 122/74
[2025-06-11] MEDS ORDERED: ONDANSETRON 4 MG HOME.PACK SL ONE (06:00)
== END 2025-06-11 06:00 | disposition home or self-care (01) ==
LOC: ED 03:48
PROVIDERS: Family Medicine
DX: K52.9 Noninfective gastroenteritis and colitis, unspecified (principal); Z79.899 Other long term (current) drug therapy
CPT/HCPCS: 36415; 74177; 80053; 83735; 84703; 85025; 96375; 96376; 99284-25; A9270; J1885; J2405; J7121; Q9967

== ENCOUNTER 2025-09-08 12:08 | Emergency (ER) | payer BC ==
[~2025-09-08] VITALS: Ht 165.1 cm; Wt 86.0 kg
[~2025-09-08 12:08] MED LIST changes: +CARAFATE1 GM PO; +ENSKYCE1 EACH PO; +LOMOTIL TABLET1 EACH PO
--- OUTSIDE RECORDS SUMMARY | 2025-09-08 12:12 | XMS ---
PreManage Notification: ROBBY GUERRERO Security Early Childhood Coordinator Events No recent Security Events currently on file CRITERIA MET - Group Notification CARE PROVIDERS [facility]OHNNY [facility] 05/04/2019-Current PHONE: Unknown NELDA GOMEZ Physician [employer] Current PHONE: [phone] STIVEN ROMERO \T\ Gynecology Current PHONE: [phone] JEYSON SAMAYOA Physician [employer] Current PHONE: [phone] Jono has no Care Guidelines for this patient. Maylin VISIT COUNT (12 MO.) 5 [facility] TOTAL 5 NOTE: Visits indicate total known visits. ED/UCC VISIT TRACKING (12 MO.) 09/08/2025 12:08 [facility] TYPE: Emergency COMPLAINT: - VOMITING 06/11/2025 03:49 [facility] TYPE: Emergency COMPLAINT: - VOMITING DIAGNOSES: - Nausea with vomiting, unspecified - Noninfective gastroenteritis and colitis, unspecified - Other senior care (current) drug therapy 05/16/2025 14:32 [facility] TYPE: Emergency COMPLAINT: - WOUND CHECK 05/12/2025 16:25 [facility] TYPE: Emergency COMPLAINT: - LOWER ABD PAIN DIAGNOSES: - Lower abdominal pain, unspecified - Other watermelon harvesting supervisor (current) drug therapy - Salpingitis and oophoritis, unspecified - Unspecified abdominal pain 05/09/2025 09:01 [facility] TYPE: Emergency COMPLAINT: - ABDOMINAL PAIN [...] unspecified - Iron deficiency anemia, unspecified - [facility] (current) use of opiate analgesic - buttermaker helper (current) use of opiate analgesic - Long-term (current) use of injectable non-insulin antidiabetic drugs - Long-term (current) use of injectable non-insulin antidiabetic drugs - Oophoritis, unspecified - Oophoritis, unspecified - Other watermelon harvesting supervisor (current) drug therapy - Other senior care [...] and therapeutic injection, initial encounter 05/13/2025 00:56 [facility] TYPE: Surgery DIAGNOSES: - Tubal Ovarian Abscess 05/09/2025 09:02 [facility] TYPE: Observation COMPLAINT: - ENDOMYOMETRITIS DIAGNOSES: - Genital tract and pelvic infection following complete or unspecified spontaneous - Unspecified abdominal pain [email or web address]
[2025-09-08] MEDS ORDERED: SODIUM CHLORIDE 0.9% 500 ML IV ONE (12:45)
[2025-09-08 12:50] LABS: BASOPHILS 0.3 % (0.1-1.2); EOSINOPHILS 4.2 % (0.7-5.8); LYMPHOCYTES 18.3 % (19.3-51.7); MCH 27.8 PG (25.6-32.2); MCHC 32.6 g/dL (32.2-35.5); MCV 85.2 fL (79.4-94.8); MONOCYTES 5.4 % (4.7-12.5); NEUTROPHILS 71.5 % (34.0-71.1); RBC 5.15 M/uL (3.93-5.22)
[2025-09-08 13:07] LABS: ALT (SGPT) 20.0 U/L (14-59); AST (SGOT) 14.0 U/L (15-37); GLOMERULAR FILTRATION RATE,EST 126.0 mL/min (>60); PROTEIN, TOTAL 7.6 g/dL (6.4-8.2); UREA NITROGEN 8.0 mg/dL (7-18)
[2025-09-08 14:14] LABS: BLOOD/HGB, URINE NEGATIVE (Negative); KETONE, URINE NEGATIVE (Negative); LEUK ESTERASE, URINE TRACE (negative); NITRITE, URINE NEGATIVE (negative)
[2025-09-08 14:22] LABS: CRYSTALS, URINE NONE SEEN (0-1+); EPITHELIAL CELLS, URINE SQUAMOUS 3+ /lpf (0-1+)
[2025-09-08 14:23] LABS: BACTERIA, URINE 2+ /hpf (negative); CASTS, URINE NONE SEEN \\lpf; REFLEX CULTURE, URINE No (No)
[2025-09-08] MEDS ORDERED: ONDANSETRON ODT4 MG PO (14:47)
[2025-09-08 14:56] VITALS: BP 128/69
== END 2025-09-08 14:58 | disposition home or self-care (01) ==
LOC: ED 12:08
PROVIDERS: Emergency Medicine
DX: R19.7 Diarrhea, unspecified (principal); R11.10 Vomiting, unspecified; Z79.899 Other long term (current) drug therapy
CPT/HCPCS: 36415; 80053; 81001; 83735; 84703; 85025; 96374; 99283-25; J2405; J7040